=== PATIENT | female | born 1965 | race Caucasian/White ===

== ENCOUNTER 2020-04-14 15:17 | Outpatient (CLI) | payer BC, SELFPAY ==
--- NOTE | 2020-04-14 15:25 | MM_ITS ---
WS: [id number] SCREENING DIGITAL MAMMOGRAM WITH CAD HISTORY: SCREENING COMPARISON: 02/20/2018 and 12/18/2016 Bilateral CC and MLO views submitted. Computer aided detection analyzed. Breast composition: There are scattered areas of fibroglandular density. No suspicious masses, microc alcifications or architectural distortion. MM/[place] [id number] IMPRESSION: BI-RADS: 1-Negative FOLLOW UP: 1 Year Follow-up
== END 2020-04-14 15:18 | disposition home or self-care (01) ==
LOC: RADSHAW 15:22
PROVIDERS: PCP Family Medicine; Visit Provider Family Medicine
DX: Z12.31 Encounter for screening mammogram for malignant neoplasm of breast (principal)
CPT/HCPCS: 77067

== ENCOUNTER 2022-03-28 07:54 | Outpatient (CLI) | payer BC, SELFPAY ==
--- NOTE | 2022-03-28 08:03 | MM_ITS ---
WS: [id number] VIEWS: MLO and CC views both breasts. 3D digital tomosynthesis is also included in this exam. Comparison made with prior exam of 08/20/2006, 03/10/2010, 12/18/2016, 04/14/2020.. Findings: Questionable new 6 mm nodule in the anterior lateral right breast. This is only seen on the cc view. No architectural distortion or suspicious calcification. No other significant change in either breast . Compression spot views and regional ultrasound of the anterior lateral right breast would be indica jaciel for further workup.. Scattered fibroglandular densities. MM/[place] [id number] Impression: BI-RADS: 0-Incomplete: Need additional imaging evaluation FOLLOW-UP: See Report This mammogram was also analyzed by the Computer Aided Detection System R2 Imag e Safety Tech.
== END 2022-03-28 07:55 | disposition home or self-care (01) ==
PROVIDERS: PCP Family Medicine; Visit Provider Family Medicine
DX: Z13.9 Encounter for screening, unspecified (principal)
CPT/HCPCS: 77063; 77067

== ENCOUNTER 2022-04-16 10:28 | Outpatient (CLI) | payer BC, SELFPAY ==
--- NOTE | 2022-04-16 10:43 | MM_ITS ---
WS: [id number] ADDITIONAL VIEWS RIGHT MAMMOGRAM WITH DIGITAL BREAST TOMOSYNTHESIS. RIGHT BREAST ULTRASOUND HISTORY: ABNORMAL MAMMO COMPARISON: 03/28/2020, 04/14/2020 and 02/20/2018 RIGHT MAMMOGRAM: Spot compression views and true ML with digital breast tomosynthesis and SM. Ovoid 4 mm nodule in the anterior RIGHT breast near the 10-11 o'clock axis. Corresponds to the findin g on the prior mammogram. RIGHT BREAST ULTRASOUND 2-D and color Doppler imaging submitted. There is a small ovoid cyst at 10:00 in the RIGHT breast measuring 4 x 2 x 3 mm. This corresponds in size and location to the mammographic abnormality. MM/[place] [id number] IMPRESSION: BI-RADS: 2-Benign FOLLOW UP: 1 Year Follow-up
== END 2022-04-16 10:29 | disposition home or self-care (01) ==
PROVIDERS: PCP Family Medicine; Visit Provider Family Medicine
DX: R92.8 Other abnormal and inconclusive findings on diagnostic imaging of breast (principal)
CPT/HCPCS: 76642; 77061

== ENCOUNTER 2022-12-27 10:45 | Emergency (ER) | payer OTHER, SELFPAY ==
[2022-12-27 10:49] VITALS: BP 159/96; PULSE 91; RESP 17; TEMP 36.6; O2SAT 96; BMI 31.1
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
== END 2022-12-27 13:25 | disposition home or self-care (01) ==
PROVIDERS: Emergency Provider Physician Assistant; PCP Family Medicine
DX: R51.9 Headache, unspecified (principal); M25.552 Pain in left hip; M25.512 Pain in left shoulder; V89.2XXA Person injured in unspecified motor-vehicle accident, traffic, initial encounter
CPT/HCPCS: 70450; 73030; 73502; 99284

== ENCOUNTER 2023-09-27 07:22 | Outpatient (CLI) | payer OTHER, SELFPAY ==
--- NOTE | 2023-09-27 07:30 | MM_ITS ---
WS: [id number] BILATERAL SCREENING DIGITAL TOMOSYNTHESIS MAMMOGRAM WITH CAD HISTORY: SCREENING COMPARISON: 04/16/2022 and 03/28/2022 and 04/14/2020 Bilateral CC and MLO views with tomosynthesis and synthetic mammography submitted. Computer aided det ection analyzed. Breast composition: There are scattered areas of fibroglandular density. No suspicious masses, microc alcifications or architectural distortion. IMPRESSION: MM/[place] [id number] BI-RADS: 1-Negative FOLLOW UP: 1 Year Follow-up
== END 2023-09-27 07:23 | disposition home or self-care (01) ==
LOC: RAD 07:22
PROVIDERS: PCP Family Medicine; Visit Provider Family Medicine
DX: Z12.31 Encounter for screening mammogram for malignant neoplasm of breast (principal)
CPT/HCPCS: 77063; 77067

== ENCOUNTER 2024-06-09 11:44 | Outpatient (CLI) | payer OTHER, SELFPAY ==
--- NOTE | 2024-06-09 11:53 | ECG_ITS ---
[facility] Test Date: 2024-06-09 Pat Name: Luci Welch Department: Room: Gender: Female Shareholder: Amrit Pulido : 1965 Requested By: Rosalina Kulkarni Order Number: [id number] Carpenter MD: Lev Alston M.D. Interpretive Statements NAME OF STUDY: TREADMILL STRESS TEST INDICATION: [Chest Pain, ] EXERCISE DATA: The patient was exercised by [place] protocol. Baseline heart rate was 80 beats per minute. Baseline blood pressure was 136/74 millimeters of mercury. Maximal predicted heart rate was 162 beats per minute. Maximum heart rate achieved was 156, which was 96% of the maximum predicted heart rate. Maximum blood pressure was 184/84 millimeters of mercury. Total exercise time was 7 minutes and 1 second. Maximum METs achieved was 10.2. The reason for ending the test was maximal effort achieved. The patient complained of shortness of breath during the stress test, which then resolved at the end of the test. ELECTROCARDIOGRAM: BASELINE: Showed sinus rhythm, normal axis, no significant ST-T changes at the baseline noted. [] EXERCISE: At the peak exercise level, [] No significant ST-T changes suggestive of ischemia noted. [] RECOVERY: During the recovery period, heart rate dropped appropriately. No significant ST-T changes in the recovery suggestive of ischemia noted. [] CONCLUSION: 1. Exercise capacity is good 2. Heart rate response was appropriate 3. Blood pressure response was appropriate 4. Symptoms not suggestive of ischemia. 5. Stress test does not show evidence of ischemia. Electronically Signed On 06-10-2024 12:05:27 CDT by Lev Alston M.D. [email or web address]
[2024-06-09 12:00] VITALS: BMI 31.6
[2024-06-09 12:26] VITALS: BP 125/71; PULSE 90
== END 2024-06-09 11:45 | disposition home or self-care (01) ==
PROVIDERS: PCP Family Medicine; Visit Provider Family Medicine
DX: R07.9 Chest pain, unspecified (principal)
CPT/HCPCS: 93017

== ENCOUNTER 2024-11-09 15:05 | Outpatient (CLI) | payer OTHER, SELFPAY ==
--- NOTE | 2024-11-09 15:20 | MM_ITS ---
WS: [id number] BILATERAL 3D TOMOSYNTHESIS DIGITAL SCREENING MAMMOGRAPHY WITH CAD CLINICAL INFORMATION: SCREENING HISTORY: Screening mammogram. No current complaints. COMPARISON: 2022 TECHNIQUE: Bilateral CC and MLO views. FINDINGS: Scattered fibroglandular densities bilaterally. No suspicious focal mass, asymmetry, calcifications, or architectural distortion. No evidence of malignancy. Vascular calcification. MM/MM scr tomosynthesis [id number] IMPRESSION: DENSITY: There are scattered areas of fibroglandular density. BI-RADS: 2 - Benign. FOLLOW UP: 1 Year Follow-up Recommend return to annual screening mammography.
== END 2024-11-09 15:06 | disposition home or self-care (01) ==
PROVIDERS: PCP Family Medicine; Visit Provider Family Medicine
DX: Z12.31 Encounter for screening mammogram for malignant neoplasm of breast (principal); R92.323 Mammographic fibroglandular density, bilateral breasts; R92.1 Mammographic calcification found on diagnostic imaging of breast
CPT/HCPCS: 77063; 77067